=== PATIENT | male | born 2000 | race Caucasian/White ===

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

== ENCOUNTER 2022-02-21 04:45 | Emergency (ER) | payer MEDICAID ==
[~2022-02-21 04:45] MED LIST: AMOX500C2 PO
--- NOTE | 2022-02-21 05:09 | ED Psychosocial ---
General Chief Complaint: Psych/Social Disorder Stated Complaint: SUICIDAL IDEATIONS Source: patient (MACHO REDD ) History of Present Illness Date Seen by Provider: Feb 21, 2022 Time Seen by Provider: 04:50 Initial Comments PT ARRIVES VIA EMS FROM HOME--WALKS INTO ER ON HIS OWN C/O SUICIDAL IDEATIONS STATES THAT TONIGHT, HE HAD A KNIFE IN HIS HAND AND WAS PLANNING ON GETTING INTO THE SHOWER/BATHTUB AND SLITTING HIS WRISTS STATES ONE OF HIS FRIENDS TEXTED HIM BACK AND THEN CONVINCED HIM TO COME HERE AND GET HELP. PT LIVES WITH 2 OTHER PEOPLE AT THIS TIME PT STATES THAT 5 DAYS AGO, HE BROKE UP WITH SOMEONE THAT HE HAD BEEN WITH FOR 2 1/2 YEARS THAT PERSON USED TO LIVE WITH HIM, BUT HAS NOT LIVED WITH HIM "FOR AWHILE" PT DOES NOT WORK, AND DOES NOT GO TO SCHOOL PT HAD SOME SUICIDAL IDEATIONS IN THE PAST, AND WAS ADMITTED VOLUNTARILY FOR 2 WEEKS AT A FACILITY IN [place] 04/2020 HE WAS STARTED ON MEDICATIONS, BUT PT QUIT TAKING THEM AFTER ABOUT 2 WEEKS, AND NEVER FOLLOWED UP WITH ANYONE FOR MENTAL HEALTH AT ANY TIME. PT DOES NOT SEE ANY ONE FOR PRIMARY CARE EITHER. PT IS CURRENTLY TAKING SPIRONOLACTONE AND ESTRADIOL SINCE 05/01/2021--PRESCRIBED BY [facility] [place]IA TELEHEALTH VISIT PT SMOKES 1/2 PPD OF CIGARETTES OCCASIONALLY SMOKES THC, BUT NONE X 3 MONTHS OCCASIONALLY DRINKS, BUT NONE X 8-9 MONTHS. NO FEVER OR RECENT ILLNESS PT HAS HAD 1 COVID-19 VACCINE. PCP; NONE (MACHO REDD DO) Initial Comments Patient states transgender identity and is on hormone therapy with estradiol and spironolactone. (JANINE KAY MD) Allergies and Home Medications Allergies Coded Allergies: No Known Drug Allergies (Unverified , 02/22/21) Patient Home Medication List Home Medication List Reviewed: Yes (JANINE KAY MD) Amoxicillin (Amoxicillin) 500 Mg Capsule, 500 MG PO TID Prescribed by: BETH CAMPBELL on 02/22/212020 Review of Systems Constitutional: no symptoms reported EENTM: no symptoms reported Respiratory: no symptoms reported Cardiovascular: no symptoms reported Gastrointestinal: no symptoms reported Genitourinary: no symptoms reported Musculoskeletal: no symptoms reported Skin: no symptoms reported Psychiatric/Neurological: See HPI, Depressed, Emotional Problems (MACHO REDD) Past Kygdaga-Sunpfl-Swtkyc Hx Patient Social History Tobacco Use?: Yes Tobacco type used: Cigarettes Smoking Status: Current Everyday Smoker Substance type: Marijuana Substance frequency: Once in a while Alcohol Use?: Yes Alcohol Frequency: Once in a while (MACHO REDD DO) Immunizations Up To Date First/Initial COVID19 Vaccinat: OCTOBER 2020 (MACHO REDD DO) Past Medical History Surgeries: No Respiratory: No Cardiac: No Neurological: No Genitourinary: No Gastrointestinal: No Musculoskeletal: No Endocrine: No HEENT: No Cancer: No Psychosocial: Yes (SUICIDAL THOUGHTS; PSYCH ADMIT X 1 04/2020) Depression (MACHO REDD DO) Endocrine: Yes (Transgender identity with hormone therapy) (JANINE KAY MD) Physical Exam Vital Signs - First Documented 02/21/22 04:48 Temp 37.0 Pulse 87 Resp 16 B/P (MAP) 141/96 (111) Pulse Ox 97 O2 Delivery Room Air (JANINE KAY MD) Capillary Refill : (MACHO REDD DO) Height, Weight, BMI Height: '" Weight: lbs. oz. kg; 19.00 BMI Method: General Appearance: WD/WN, no apparent distress, thin, other (DIRTY, VERY UNKEMPT, MALODOROUS AND REEKS OF CIGARETTES, FLAT AFFECT, BUT DOES TALK FREELY. ) HEENT: PERRL/EOMI Neck: normal inspection Respiratory: normal breath sounds Cardiovascular: regular rate, rhythm Gastrointestinal: non tender, soft Extremities: normal inspection, normal capillary refill Neurologic/Psychiatric: retail support manager II-XII nml as tested, no motor/sensory deficits, alert, oriented x 3 Appearance/Memory: appropriate insight, no memory impairment, disheveled Behavior/Eye Contact: cooperative, normal speech, avoids eye contact Thoughts/Hallucinations: normal thought pattern, no apparent hallucination Skin: normal color, warm/dry, other (NO EXTERNAL EVIDENCE OF TRAUMA) (MACHO REDD DO) Progress/Results/Core Measures Results/Orders Lab Results Laboratory Tests Test 02/21/22 05:14 02/21/22 06:40 Range/Units White Blood Count 8.4 4.3-11.0 10^3/uL Red Blood Count 5.94 H 4.30-5.52 10^6/uL Hemoglobin 16.7 13.3-17.7 g/dL Hematocrit 48 40-54 % Mean Corpuscular Volume 82 80-99 fL Mean Corpuscular Hemoglobin 28 25-34 pg Mean Corpuscular Hemoglobin Concent 35 32-36 g/dL Red Cell Distribution Width 12.2 10.0-14.5 % Platelet Count 236 130-400 10^3/uL Mean Platelet Volume 9.8 9.0-12.2 fL Immature Granulocyte % (Auto) 0 % Neutrophils (%) (Auto) 67 42-75 % Lymphocytes (%) (Auto) 24 12-44 % Monocytes (%) (Auto) 7 0-12 % Eosinophils (%) (Auto) 2 0-10 % Basophils (%) (Auto) 0 0-10 % Neutrophils # (Auto) 5.6 1.8-7.8 10^3/uL Lymphocytes # (Auto) 2.0 1.0-4.0 10^3/uL Monocytes # (Auto) 0.5 0.0-1.0 10^3/uL Eosinophils # (Auto) 0.2 0.0-0.3 10^3/uL Basophils # (Auto) 0.0 0.0-0.1 10^3/uL Immature Granulocyte # (Auto) 0.0 0.0-0.1 10^3/uL Sodium Level 139 135-145 MMOL/L Potassium Level 3.5 L 3.6-5.0 MMOL/L Chloride Level 102 98-107 MMOL/L Carbon Dioxide Level 25 21-32 MMOL/L Anion Gap 12 5-14 MMOL/L Blood Urea Nitrogen 12 7-18 MG/DL Creatinine 0.88 0.60-1.30 MG/DL Estimat Glomerular Filtration Rate 126 BUN/Creatinine Ratio 14 Glucose Level 101 70-105 MG/DL Calcium Level 10.3 H 8.5-10.1 MG/DL Corrected Calcium 8.5-10.1 MG/DL Total Bilirubin 0.5 0.1-1.0 MG/DL Aspartate Amino Transf (AST/SGOT) 16 5-34 U/L Alanine Aminotransferase (ALT/SGPT) 16 0-55 U/L Alkaline Phosphatase 56 40-136 U/L Total Protein 7.9 6.4-8.2 GM/DL Albumin 4.9 H 3.2-4.5 GM/DL TSH [place] Testing 0.74 0.35-4.94 UIU/ML Salicylates Level < 5.0 L 5.0-20.0 MG/DL Acetaminophen Level < 10 L 10-30 UG/ML Serum Alcohol < 10 <10 MG/DL SARS-CoV-2 RNA (RT-PCR) Not Detected Not Detecte Urine Color YELLOW Urine Clarity CLEAR Urine pH 8.5 5-9 Urine Specific [place] 1.010 L 1.016-1.022 Urine Protein 1+ H NEGATIVE Urine Glucose (UA) NEGATIVE NEGATIVE Urine Ketones TRACE H NEGATIVE Urine Nitrite NEGATIVE NEGATIVE Urine Bilirubin NEGATIVE NEGATIVE Urine Urobilinogen 4.0 < = 1.0 MG/DL Urine Leukocyte Esterase NEGATIVE NEGATIVE Urine RBC (Auto) NEGATIVE NEGATIVE Urine RBC NONE /HPF Urine WBC RARE /HPF Urine Squamous Epithelial Cells 5-10 /HPF Urine Crystals NONE /LPF Urine Bacteria MODERATE H /HPF Urine Casts NONE /LPF Urine Mucus NEGATIVE /LPF Urine Culture Indicated YES Urine Opiates Screen NEGATIVE NEGATIVE Urine Oxycodone Screen NEGATIVE NEGATIVE Urine Methadone Screen NEGATIVE NEGATIVE Urine Propoxyphene Screen NEGATIVE NEGATIVE Urine Barbiturates Screen NEGATIVE NEGATIVE Ur Tricyclic Antidepressants Screen NEGATIVE NEGATIVE Urine Phencyclidine Screen NEGATIVE NEGATIVE Urine Amphetamines Screen NEGATIVE NEGATIVE Urine Methamphetamines Screen NEGATIVE NEGATIVE Urine Benzodiazepines Screen NEGATIVE NEGATIVE Urine Cocaine Screen NEGATIVE NEGATIVE Urine Cannabinoids Screen NEGATIVE NEGATIVE (JANINE KAY MD) My Orders Orders - JANINE KAY MD General/Regular (02/21/22 Breakfast) (JANINE KAY MD) Vital Signs/I&O 02/21/22 04:48 Temp 37.0 Pulse 87 Resp 16 B/P (MAP) 141/96 (111) Pulse Ox 97 O2 Delivery Room Air (JANINE KAY MD) Progress Progress Note : Progress Note TELE-SITTER IN ROOM AND PT IS IN VIEW OF ER STAFF AT NURSING STATION 0600--CARE TURNED OVER TO DR. KAY AT SHIFT CHANGE. LAB IS STILL PENDING AND PT HAS NOT BEEN ABLE TO GIVE A URINE SPECIMEN AT THIS TIME, THEN ANTICIPATE MENTAL HEALTH SCREEN. PT REMAINS CALM AND COOPERATIVE. (MACHO REDD DO) Progress Note : Time: 11:21 Progress Note Patient was screened by [place] [facility]. Safety plan was developed. There was questionable pyuria on the urinalysis. Patient denies any urinary symptoms. We will not prescribe any antibiotics at this time and wait for urine culture results. I also clarified that the spironolactone and estradiol were for hormone therapy in this patient who identifies as transgender. (JANINE KAY MD) Initial ECG Impression Date: Feb 21, 2022 Initial ECG Impression Time: 05:40 Initial ECG Rate: 71 Initial ECG Rhythm: Normal Sinus Initial ECG Impression: Nonspecific Changes Initial ECG Comparisson: No Previous ECG Available (MACHO REDD DO) Departure Impression Primary Impression: Suicidal ideation Disposition: HOME, SELF-CARE Condition: Stable Departure-Patient Inst. Decision time for Depature: 11:12 (JANINE KAY MD) Referrals: NO,LOCAL PHYSICIAN (PCP/Family) Primary Care Physician Patient Instructions: Suicide Prevention Add. Discharge Instructions: Follow the instructions outlined in your safety plan. For urgent mental health or behavioral health needs, you may contact the critical access hospital crisis line at [phone]. Alternatively, you may return to the emergency room. Return to the ER if you have any other urgent medical needs. Follow-up with your primary care provider and behavioral health provider soon as possible. All discharge instructions reviewed with patient and/or family. Voiced understanding. MACHO REDD DO Feb 21, 2022 05:09 JANINE KAY MD Feb 21, 2022 11:14
[2022-02-21 05:29] LABS: BASOPHILS % (AUTO) 0 % (0-10); EOSINOPHILS # (AUTO) 0.2 10^3/uL (0.0-0.3); EOSINOPHILS % (AUTO) 2 % (0-10); HEMATOCRIT 48 % (40-54); HEMOGLOBIN 16.7 g/dL (13.3-17.7); LYMPHOCYTES % (AUTO) 24 % (12-44); MEAN CORPUSCULAR HEMOGLOBIN 28 pg (25-34); MEAN CORPUSCULAR HGB CONC 35 g/dL (32-36); MEAN CORPUSCULAR VOLUME 82 fL (80-99); MEAN PLATELET VOLUME 9.8 fL (9.0-12.2); MONOCYTES # (AUTO) 0.5 10^3/uL (0.0-1.0); MONOCYTES % (AUTO) 7 % (0-12); NEUTROPHILS # (AUTO) 5.6 10^3/uL (1.8-7.8); NEUTROPHILS % (AUTO) 67 % (42-75); PLATELET COUNT 236 10^3/uL (130-400); WHITE BLOOD COUNT 8.4 10^3/uL (4.3-11.0)
[2022-02-21 05:50] LABS: ALBUMIN 4.9 GM/DL (3.2-4.5); CHLORIDE 102 MMOL/L (98-107); POTASSIUM 3.5 MMOL/L (3.6-5.0); SODIUM 139 MMOL/L (135-145)
[2022-02-21 05:51] LABS: CALCIUM 10.3 MG/DL (8.5-10.1)
[2022-02-21 05:52] LABS: GLUCOSE 101 MG/DL (70-105)
[2022-02-21 05:53] LABS: CARBON DIOXIDE 25 MMOL/L (21-32); TOTAL PROTEIN 7.9 GM/DL (6.4-8.2)
[2022-02-21 05:54] LABS: BILIRUBIN,TOTAL 0.5 MG/DL (0.1-1.0)
[2022-02-21 05:56] LABS: ALKALINE PHOSPHATASE 56 U/L (40-136); CREATININE SERUM 0.88 MG/DL (0.60-1.30); GFR ESTIMATED 126
[2022-02-21 05:58] LABS: BUN/CREATININE RATIO 14
[2022-02-21 05:59] LABS: ALANINE AMINOTRANSFERASE 16 U/L (0-55); SALICYLATE < 5.0 MG/DL (5.0-20.0)
[2022-02-21 06:11] LABS: ACETAMINOPHEN < 10 UG/ML (10-30)
[2022-02-21 06:19] LABS: TSH (THYROID ANALYZER) 0.74 UIU/ML (0.35-4.94)
[2022-02-21 06:49] LABS: BILIRUBIN,URINE NEGATIVE (NEGATIVE); CLARITY,URINE CLEAR; COLOR,URINE YELLOW; GLUCOSE, URINE (UA) NEGATIVE (NEGATIVE); KETONES,URINE TRACE (NEGATIVE); LEUKOCYTE ESTERASE ,URINE NEGATIVE (NEGATIVE); NITRITE,URINE NEGATIVE (NEGATIVE); PH,URINE 8.5 (5-9); PROTEIN,URINE 1+ (NEGATIVE)
[2022-02-21 06:58] LABS: AMPHETAMINE SCREEN, URINE NEGATIVE (NEGATIVE); BARBITURATE SCREEN URINE NEGATIVE (NEGATIVE); BENZODIAZEPINES SCREEN URINE NEGATIVE (NEGATIVE); CANNABINOID SCREEN, URINE NEGATIVE (NEGATIVE); COCAINE SCREEN URINE NEGATIVE (NEGATIVE); METHADONE STAT NEGATIVE (NEGATIVE); OPIATE SCREEN URINE NEGATIVE (NEGATIVE); OXYCODONE STAT NEGATIVE (NEGATIVE); PROPOXYPHENE STAT NEGATIVE (NEGATIVE); TRICYCLIC ANTIDEPRESSANTS SCRE NEGATIVE (NEGATIVE)
[2022-02-21 07:02] LABS: BACTERIA,URINE MODERATE /HPF; WBC,URINE RARE /HPF
[2022-02-21 11:22] VITALS: BP 117/76
== END 2022-02-21 11:22 | disposition home or self-care (01) ==
LOC: EDUNIT# 04:45 → ER 04:46
DX: R45.851 Suicidal ideations (principal); F17.210 Nicotine dependence, cigarettes, uncomplicated; Z20.822 Contact with and (suspected) exposure to COVID-19; Z28.311 Partially vaccinated for COVID-19
CPT/HCPCS: 80053; 80306; 81000; 84443; 85025; 87077; 87088; 87636; 93005; 93041; 99284; G0480 ×3; 36415; 80320; 80329

== ENCOUNTER 2022-12-27 13:27 | Emergency (ER) | payer MEDICAID ==
[~2022-12-27] VITALS: Ht 187.9 cm; Wt 72.5 kg
[2022-12-27 13:41] LABS: BASOPHILS % (AUTO) 0 % (0-10); EOSINOPHILS # (AUTO) 0.1 10^3/uL (0.0-0.3); EOSINOPHILS % (AUTO) 1 % (0-10); HEMATOCRIT 43 % (40-54); HEMOGLOBIN 14.4 g/dL (13.3-17.7); LYMPHOCYTES % (AUTO) 17 % (12-44); MEAN CORPUSCULAR HEMOGLOBIN 28 pg (25-34); MEAN CORPUSCULAR HGB CONC 34 g/dL (32-36); MEAN CORPUSCULAR VOLUME 83 fL (80-99); MEAN PLATELET VOLUME 9.6 fL (9.0-12.2); MONOCYTES # (AUTO) 0.9 10^3/uL (0.0-1.0); MONOCYTES % (AUTO) 15 % (0-12); NEUTROPHILS % (AUTO) 66 % (42-75); PLATELET COUNT 191 10^3/uL (130-400); WHITE BLOOD COUNT 6.1 10^3/uL (4.3-11.0)
[2022-12-27] MEDS ORDERED: fentaNYL INJECTION 100 MCG/2 ML VIAL IVP ONE ×2 (13:45→15:45)
[2022-12-27] MEDS ORDERED: ONDANSETRON 4 MG/2 ML (SDV) Z0FRAN IVP ONE (13:45)
[2022-12-27 13:51] LABS: ALBUMIN 4.3 GM/DL (3.2-4.5)
[2022-12-27 13:52] LABS: POTASSIUM 3.3 MMOL/L (3.6-5.0)
[2022-12-27 13:53] LABS: CALCIUM 9.5 MG/DL (8.5-10.1)
[2022-12-27 13:56] LABS: BILIRUBIN,TOTAL 0.4 MG/DL (0.1-1.0)
[2022-12-27 13:58] LABS: CREATININE SERUM 0.83 MG/DL (0.60-1.30)
--- NOTE | 2022-12-27 14:12 | ED Abdominal Pain ---
General Chief Complaint: Abdominal/GI Problems Stated Complaint: ABD PAIN | DIZZINESS Nursing Triage Note: PT TO RM 5 BY EMS WITH CC OF LLQ ABD PAIN X1HR, DIZZINESS, NAUSEA AND VOMITING X1.5WEEKS. 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 PT A&OX4 Source of Information: Patient Exam Limitations: No Limitations History of Present Illness Date Seen by Provider: Dec 27, 2022 Time Seen by Provider: 13:35 Initial Comments 22-year-old male presents to the ER via EMS for complaint of left mid abdominal pain x 1 hour. He states he had 1 episode of vomiting when the pain started. Reports he vomited a large amount of bloody emesis. He states for the last week and a half he has had intermittent left mid abdomen and right mid abdomen pain. States that a week and half ago he had 1 episode of vomiting with a small amount of blood at that time. He denies excessive aspirin or ibuprofen use. Patient is coughing, but states that the blood is from vomit, not from coughing. He denies fevers, diarrhea, dysuria. Last bowel movement was yesterday and normal. Reports his bowel movements are brown in color. Denies any blood in his stool or black tarry stools. Denies any past medical history, does not taking medic ations regularly. Reports that he smokes weed about once a week on the weekends. Allergies and Home Medications Allergies Coded Allergies: No Known Drug Allergies (Unverified , 02/22/21) Patient Home Medication List Home Medication List Reviewed: Yes Amoxicillin (Amoxicillin) 500 Mg Capsule, 500 MG PO TID Prescribed by: BETH CAMPBELL on 02/22/212020 Ondansetron (Ondansetron Odt) 4 Mg Tab.rapdis, 4 MG SL Q4H PRN for NAUSEA/VOMITING Prescribed by: Mai Silva on 12/27/22 1522 Review of Systems Review of Systems Constitutional: see HPI Past Dvnuycb-Zrfwfc-Cbiufp Hx Patient Social History Tobacco Use?: No Substance use?: Yes Substance type: Marijuana Alcohol Use?: No Pt feels they are or have been: No Immunizations Up To Date First/Initial COVID19 Vaccinat: OCTOBER 2020 Second COVID19 Vaccination Chau: OCTOBER 2020 Third COVID19 Vaccination Date: OCTOBER 2020 Past Medical History Surgeries: No Respiratory: No Cardiac: No Neurological: No Genitourinary: No Gastrointestinal: No Musculoskeletal: No 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 oz. kg; 20.00 BMI Method: General Appearance: WD/WN, no apparent distress Neck: supple, normal inspection Respiratory: lungs clear, normal breath sounds, no respiratory distress, no accessory muscle use Cardiovascular: regular rate, rhythm Gastrointestinal: normal bowel sounds, soft, tenderness (Right lower quadrant, left lower quadrant, worse in left lower quadrant) Extremities: normal range of motion, normal inspection Neurologic/Psychiatric: alert, normal mood/affect Skin: normal color, warm/dry Progress/Results/Core Measures Results/Orders Lab Results Laboratory Tests Test 12/27/22 13:30 12/27/22 15:16 Range/Units White Blood Count 6.1 4.3-11.0 10^3/uL Red Blood Count 5.12 4.30-5.52 10^6/uL Hemoglobin 14.4 13.3-17.7 g/dL Hematocrit 43 40-54 % Mean Corpuscular Volume 83 80-99 fL Mean Corpuscular Hemoglobin 28 25-34 pg Mean Corpuscular Hemoglobin Concent 34 32-36 g/dL Red Cell Distribution Width 12.7 10.0-14.5 % Platelet Count 191 130-400 10^3/uL Mean Platelet Volume 9.6 9.0-12.2 fL Immature Granulocyte % (Auto) 0 % Neutrophils (%) (Auto) 66 42-75 % Lymphocytes (%) (Auto) 17 12-44 % Monocytes (%) (Auto) 15 H 0-12 % Eosinophils (%) (Auto) 1 0-10 % Basophils (%) (Auto) 0 0-10 % Neutrophils # (Auto) 4.0 1.8-7.8 10^3/uL Lymphocytes # (Auto) 1.0 1.0-4.0 10^3/uL Monocytes # (Auto) 0.9 0.0-1.0 10^3/uL Eosinophils # (Auto) 0.1 0.0-0.3 10^3/uL Basophils # (Auto) 0.0 0.0-0.1 10^3/uL Immature Granulocyte # (Auto) 0.0 0.0-0.1 10^3/uL Sodium Level 138 135-145 MMOL/L Potassium Level 3.3 L 3.6-5.0 MMOL/L Chloride Level 106 98-107 MMOL/L Carbon Dioxide Level 21 21-32 MMOL/L Anion Gap 11 5-14 MMOL/L Blood Urea Nitrogen 5 L 7-18 MG/DL Creatinine 0.83 0.60-1.30 MG/DL Estimat Glomerular Filtration Rate 128 BUN/Creatinine Ratio 6 Glucose Level 94 70-105 MG/DL Calcium Level 9.5 8.5-10.1 MG/DL Corrected Calcium 9.3 8.5-10.1 MG/DL Total Bilirubin 0.4 0.1-1.0 MG/DL Aspartate Amino Transf (AST/SGOT) 19 5-34 U/L Alanine Aminotransferase (ALT/SGPT) 23 0-55 U/L Alkaline Phosphatase 52 40-136 U/L Total Protein 7.0 6.4-8.2 GM/DL Albumin 4.3 3.2-4.5 GM/DL Lipase 6 L 8-78 U/L Urine Color YELLOW Urine Clarity CLEAR Urine pH 5.5 5-9 Urine Specific [place] <=1.005 1.016-1.022 Urine Protein NEGATIVE NEGATIVE Urine Glucose (UA) NEGATIVE NEGATIVE Urine Ketones 1+ H NEGATIVE Urine Nitrite NEGATIVE NEGATIVE Urine Bilirubin NEGATIVE NEGATIVE Urine Urobilinogen 0.2 < = 1.0 MG/DL Urine Leukocyte Esterase NEGATIVE NEGATIVE Urine RBC (Auto) NEGATIVE NEGATIVE Urine RBC NONE /HPF Urine WBC NONE /HPF Urine Squamous Epithelial Cells 0-2 /HPF Urine Crystals NONE /LPF Urine Bacteria NEGATIVE /HPF Urine Casts NONE /LPF Urine Mucus NEGATIVE /LPF Urine Culture Indicated NO My Orders Orders - MAI PAZ APRN Comprehensive Metabolic Panel (12/27/22 13:35) Lipase (12/27/22 13:35) Ua Culture If Indicated (12/27/22 13:35) Ed Iv/Invasive Line Start (12/27/22 13:35) Cbc With Automated Diff (12/27/22 13:35) Fentanyl Injection (Fentanyl Injection (12/27/22 13:45) Ondansetron Injection (Zofran Injectio (12/27/22 13:45) Ct Abdomen/Pelvis W (12/27/22 14:01) Iohexol Injection (Omnipaque 350 Mg/Ml 1 (12/27/22 14:15) Received Contrast (Hold Metformin- Contr (12/27/22 14:15) Ns (Ivpb) 100 Ml (Sodium Chloride 0.9% 1 (12/27/22 14:15) Potassium Chloride (Tablet) (Potassium C (12/27/22 15:00) Fentanyl Injection (Fentanyl Injection (12/27/22 15:45) Medications Given in ED Current Medications Medications Dose Ordered Sig/Donya Route Start Time Stop Time Status Last Admin Dose Admin Fentanyl Citrate 50 mcg ONCE ONCE IVP 12/27/22 13:45 12/27/22 13:46 DC 12/27/22 14:04 50 MCG Fentanyl Citrate 50 mcg ONCE ONCE IVP 12/27/22 15:45 12/27/22 15:46 DC 12/27/22 15:44 50 MCG Iohexol 100 ml ONCE ONCE IV 12/27/22 14:15 12/27/22 14:16 DC 12/27/22 14:17 80 ML Ondansetron HCl 4 mg ONCE ONCE IVP 12/27/22 13:45 12/27/22 13:46 DC 12/27/22 14:04 4 MG Potassium Chloride 40 meq ONCE ONCE PO 12/27/22 15:00 12/27/22 15:01 DC 12/27/22 15:07 40 MEQ Sodium Chloride 100 ml ONCE ONCE IV 12/27/22 14:15 12/27/22 14:16 DC 12/27/22 14:17 80 ML Vital Signs/I&O 12/27/22 13:30 Temp 37.6 Pulse 90 Resp 18 B/P (MAP) 129/79 (96) Pulse Ox 98 O2 Delivery Room Air Blood Pressure Mean: 96 Progress Progress Note : Progress Note Patient seen and evaluated, resting comfortably in bed, no acute distress. Based on exam and symptoms, workup initiated including CBC, CMP, lipase, UA, CT abdomen pelvis. Fentanyl and Zofran ordered, EMS already started a liter of fluids, will continue administering the fluids. 1456 CT and labs reviewed. CBC grossly normal, no anemia. CMP shows slightly decreased potassium at 3.3. Lipase normal. Still waiting on urinalysis. CT abdomen pelvis shows no acute abnormality. Oral potassium ordered. Results discussed with patient. Plan will be to discharge after urinalysis with follow- up with surgery for possible upper endoscopy. 1544 urinalysis reviewed. 1+ ketones, negative for infection. Results discussed with patient. Will continue with discharge plan. Discharge instructions and return precautions provided. Diagnostic Imaging Diagonstic Imaging: CT Plain Films/CT/US/NM/MRI: abdomen, pelvis Comments [facility] [place], [place] NAME: JENNIFER ARRIETA [facility] REC#: [id number] PT STATUS: REG ER : 2002 PHYSICIAN: MAI PAZ APRN ADMIT DATE: 12/27/22/ER Draft Date of Exam:12/27/22 CT ABDOMEN/PELVIS W PROCEDURE: CT abdomen and pelvis with contrast. TECHNIQUE: Multiple contiguous axial images were obtained through the abdomen and pelvis after administration of intravenous contrast. Auto Exposure Controls were utilized during the CT exam to meet ALARA standards for radiation dose reduction. All CT scans use one or more of the following dose optimizing techniques: automated exposure control, MA and/or KvP adjustment based on patient size and exam type or iterative reconstruction. INDICATION: Left lower quadrant pain, dizziness, nausea, vomiting, and hematemesis. COMPARISON: No priors. FINDINGS: There is no diverticulitis or evidence for appendicitis. There is no bowel obstruction. There is no pneumatosis or free gas. No intra or extraperitoneal hemorrhage. No contrast extravasation. The stomach is nondilated. No mass effect or obstruction at the level of the outlet. The liver, gallbladder, bile ducts, spleen, adrenals, and pancreas appear normal. No abscess, hematoma, or acute fluid collection. No pneumatosis or free gas. No bowel wall thickening. No perienteric or pericolonic edema. The urinary bladder is unremarkable. The bony structures are nonacute. IMPRESSION: Unremarkable abdominal/pelvic CT. Dictated on workstation # [id number] Dict: 12/27/22 1425 Trans: 12/27/22 1442 [id number] Interpreted by: SOTERO CASTRO Electronically signed by: Departure Impression Primary Impression: Abdominal pain Additional Impression: Hematemesis Disposition: 01 HOME, SELF-CARE Condition: Stable Departure-Patient Inst. Referrals: LOKESH HUDSON MD Patient Instructions: Severe Abdominal Pain, Adult (DC) Add. Discharge Instructions: Call Dr. Hudson today or tomorrow to schedule a follow-up appointment for your vomiting of blood. Take Zofran as needed for nausea, only take when needed, because it can cause constipation. Follow-up with a primary care provider as well. Return for severe pain, significant amount of bloody emesis, black tarry stool, or any other new, concerning, or worsening symptoms. All discharge instructions reviewed with patient and/or family. Voiced un derstanding. Scripts Ondansetron (Ondansetron Odt) 4 Mg Tab.rapdis 4 MG SL Q4H PRN for NAUSEA/VOMITING, #20 TAB 0 Refills Prov: MAI PAZ APRN 12/27/22 MAI PAZ APRN Dec 27, 2022 14:12
[2022-12-27] MEDS ORDERED: NS 100 ML (IVPB) BAG IV ONE (14:15)
[2022-12-27] MEDS ORDERED: HOLD METFORMIN - RECEIVED CONTRAST 20 ML VIAL IV SCH (14:15)
[2022-12-27] MEDS ORDERED: IOHEXOL 350 MG/ML 100 ML (OMNIPAQUE 350) VIAL IV ONE (14:15)
--- NOTE | 2022-12-27 14:42 | Diagnostic Imaging Report ---
PROCEDURE: CT abdomen and pelvis with contrast. TECHNIQUE: Multiple contiguous axial images were obtained through the abdomen and pelvis after administration of intravenous contrast. Auto Exposure Controls were utilized during the CT exam to meet ALARA standards for radiation dose reduction. All CT scans use one or more of the following dose optimizing techniques: automated exposure control, MA and/or KvP adjustment based on patient size and exam type or iterative reconstruction. INDICATION: Left lower quadrant pain, dizziness, nausea, vomiting, and hematemesis. COMPARISON: No priors. FINDINGS: There is no diverticulitis or evidence for appendicitis. There is no bowel obstruction. There is no pneumatosis or free gas. No intra or extraperitoneal hemorrhage. No contrast extravasation. The stomach is nondilated. No mass effect or obstruction at the level of the outlet. The liver, gallbladder, bile ducts, spleen, adrenals, and pancreas appear normal. No abscess, hematoma, or acute fluid collection. No pneumatosis or free gas. No bowel wall thickening. No perienteric or pericolonic edema. The urinary bladder is unremarkable. The bony structures are nonacute. IMPRESSION: Unremarkable abdominal/pelvic CT. Dictated by: Dictated on workstation # [id number]
[2022-12-27] MEDS ORDERED: POTASSIUM CHLORIDE 20 MEQ TABLET PO ONE (15:00)
[2022-12-27] MEDS ORDERED: ONDA4TAB11 SL (15:22)
[2022-12-27 15:39] LABS: CLARITY,URINE CLEAR; COLOR,URINE YELLOW; PH,URINE 5.5 (5-9); PROTEIN,URINE NEGATIVE (NEGATIVE)
[2022-12-27 15:40] LABS: BACTERIA,URINE NEGATIVE /HPF; BILIRUBIN,URINE NEGATIVE (NEGATIVE); GLUCOSE, URINE (UA) NEGATIVE (NEGATIVE); KETONES,URINE 1+ (NEGATIVE); LEUKOCYTE ESTERASE ,URINE NEGATIVE (NEGATIVE); NITRITE,URINE NEGATIVE (NEGATIVE); SQUAMOUS EPITHELIAL CELL,UR 0-2 /HPF
[2022-12-27 16:07] VITALS: BP 130/75
== END 2022-12-27 16:12 | disposition home or self-care (01) ==
LOC: EDUNIT# 13:27 → ER 13:28
DX: R10.32 Left lower quadrant pain (principal); R10.31 Right lower quadrant pain; K92.0 Hematemesis; R42 Dizziness and giddiness
CPT/HCPCS: 36415; 74177; 80053; 81000; 83690; 85025

== ENCOUNTER 2022-12-28 22:45 | Emergency (ER) | payer MEDICAID ==
[~2022-12-28] VITALS: Ht 187.9 cm; Wt 72.5 kg
[~2022-12-28 22:45] MED LIST changes: +ONDA4TAB11 SL
[2022-12-28 23:10] LABS: BASOPHILS % (AUTO) 0 % (0-10); EOSINOPHILS # (AUTO) 0.1 10^3/uL (0.0-0.3); EOSINOPHILS % (AUTO) 1 % (0-10); HEMATOCRIT 42 % (40-54); HEMOGLOBIN 14.2 g/dL (13.3-17.7); LYMPHOCYTES # (AUTO) 1.1 10^3/uL (1.0-4.0); LYMPHOCYTES % (AUTO) 20 % (12-44); MEAN CORPUSCULAR HEMOGLOBIN 28 pg (25-34); MEAN CORPUSCULAR HGB CONC 34 g/dL (32-36); MEAN CORPUSCULAR VOLUME 85 fL (80-99); MEAN PLATELET VOLUME 9.4 fL (9.0-12.2); MONOCYTES # (AUTO) 0.7 10^3/uL (0.0-1.0); MONOCYTES % (AUTO) 14 % (0-12); NEUTROPHILS # (AUTO) 3.5 10^3/uL (1.8-7.8); NEUTROPHILS % (AUTO) 65 % (42-75); PLATELET COUNT 182 10^3/uL (130-400); WHITE BLOOD COUNT 5.5 10^3/uL (4.3-11.0)
[2022-12-28] MEDS ORDERED: ONDANSETRON 4 MG/2 ML (SDV) Z0FRAN IVP ONE (23:15)
[2022-12-28] MEDS ORDERED: LACTATED RINGERS 1,000 ML IV ONE (23:15)
[2022-12-28 23:27] LABS: ACETAMINOPHEN 14 UG/ML (10-30); ALANINE AMINOTRANSFERASE 19 U/L (0-55); ALKALINE PHOSPHATASE 47 U/L (40-136); AMYLASE 29 U/L (25-125); BILIRUBIN,TOTAL 0.3 MG/DL (0.1-1.0); BUN/CREATININE RATIO 5; CALCIUM 9.1 MG/DL (8.5-10.1); CARBON DIOXIDE 23 MMOL/L (21-32); CHLORIDE 105 MMOL/L (98-107); CREATININE SERUM 0.82 MG/DL (0.60-1.30); GFR ESTIMATED 129; GLUCOSE 115 MG/DL (70-105); LIPASE 4 U/L (8-78); POTASSIUM 3.3 MMOL/L (3.6-5.0); SODIUM 138 MMOL/L (135-145); TOTAL PROTEIN 6.6 GM/DL (6.4-8.2)
[2022-12-29 00:26] LABS: BILIRUBIN,URINE NEGATIVE (NEGATIVE); CLARITY,URINE CLEAR; COLOR,URINE YELLOW; GLUCOSE, URINE (UA) NEGATIVE (NEGATIVE); KETONES,URINE NEGATIVE (NEGATIVE); NITRITE,URINE NEGATIVE (NEGATIVE); PROTEIN,URINE NEGATIVE (NEGATIVE)
[2022-12-29 00:27] LABS: AMORPHOUS SEDIMENT,UR FEW AMOR URATES /LPF; BACTERIA,URINE FEW /HPF; LEUKOCYTE ESTERASE ,URINE TRACE (NEGATIVE); WBC,URINE 0-2 /HPF
[2022-12-29] MEDS ORDERED: cefTRIAXone IV/IM 1,000 MG in NS (IVPB) 50 ML 50 ML IV STA (00:28)
[2022-12-29] MEDS ORDERED: IBUPROFEN 800 MG TABLET PO ONE (00:30)
[2022-12-29] MEDS ORDERED: AZITHROMYCIN 250 MG TABLET PO ONE (00:30)
[2022-12-29] MEDS ORDERED: CIPR500T5 PO (00:32)
--- NOTE | 2022-12-29 00:32 | ED Abdominal Pain ---
General Chief Complaint: Abdominal/GI Problems Stated Complaint: ABD PAIN Nursing Triage Note: PT TO ROOM BY [facility]. PT STATES HE HAS HAD ABDOMINAL PAIN FOR APPROX 2 WEEKS THAT HAS WORSENED TODAY. PT STATES HE IS VOMITING BLOOD. STATES HE WAS SENT NAUSEA MEDS TO THE PHARMACY BUT HAS NOT BEEN ABLE TO GET THEM YET. PT STATES HE TOOK TYLENOL BUT IT HAS NOT HELPED MUCH. PT REPORTS LEFT LOWER ABDOMINAL PAIN IS A 9/10 STABBING/TWISTING PAIN. PT IS A&OX4, SPEECH NORMAL ON ARRIVAL Source of Information: Patient History of Present Illness Date Seen by Provider: Dec 28, 2022 Time Seen by Provider: 22:55 Initial Comments PT ARRIVES VIA EMS FROM HOME PT C/O LLQ PAIN THAT HAS BEEN ONGOING FOR THE LAST 2 WEEKS HE STATES THAT PAIN HAS BEEN WORSE THE LAST 2 HOURS. HE HAS NOT TAKEN ANYTHING FOR PAIN HE STATES THAT HE VOMITED BLOOD 1 TIME 2 WEEKS AGO, BUT DID NOT SEEK CARE. HE VOMITED BLOOD 1 TIME 2 DAYS AGO ALSO HE HAD A NORMAL BM TODAY NO URINARY SYMPTOMS AND IS VOIDING A NORMAL AMOUNT. NO FEVER HE IS EATING AND DRINKING NORMALLY. HE ATE 2 BOLOGNA AND CHEESE SANDWICHES TODAY PLUS CHIPS. THIS IS NORMAL AMOUNT OF FOOD FOR HIM. LAST FOOD INTAKE AROUND 1700. HE WAS SEEN HERE YESTERDAY FOR THIS EXACT SAME COMPLAINT--HE STATES HE HAD NOT SOUGHT CARE FOR THIS PROBLEM UNTIL THEN, EVEN THOUGH IT HAS BEEN GOING ON FOR 2 WEEKS. PT HAD A COMPLETE WORK UP INCLUDING LAB AND CT SCAN OF ABDOMEN AND PELVIS--ALL ESSENTIALLY NORMAL. HE WAS GIVEN RX FOR ZOFRAN WHICH HE HAS NOT PICKED UP FROM THE PHARMACY HE WAS REFERRED TO DR. MASON FOR SURGICAL CONSULT. HE DID NOT ATTEMPT TO CONTACT DR. MASON'S OFFICE OR ANYONE FOR FOLLOW UP. HE DENIES ANY PRIOR ABDOMINAL SURGERIES OR GI PROBLEMS. HE JUST MOVED BACK HERE FROM [place] 3 DAYS AGO. HE WAS LIVING IN [place] WITH HIS MALE S.O. HE IS NOW LIVING HERE WITH HIS PARENTS. Allergies and Home Medications Allergies Coded Allergies: No Known Drug Allergies (Unverified , 02/22/21) Patient Home Medication List Home Medication List Reviewed: Yes Amoxicillin (Amoxicillin) 500 Mg Capsule, 500 MG PO TID Prescribed by: BETH CAMPBELL on 02/22/212020 Ciprofloxacin HCl (Ciprofloxacin HCl) 500 Mg Tablet, 500 MG PO BID Prescribed by: MACHO REDD on 12/29/22 0032 Ondansetron (Ondansetron Odt) 4 Mg Tab.rapdis, 4 MG SL Q4H PRN for NAUSEA/VOMITING Prescribed by: Mai Silva on 12/27/22 1522 Pantoprazole Sodium (Protonix) 40 Mg Tablet.dr, 40 MG PO DAILY Prescribed by: MACHO REDD on 12/29/22 0215 Review of Systems Review of Systems Constitutional: no symptoms reported; No dizziness, No fever EENTM: No Symptoms Reported Respiratory: No Symptoms Reported Cardiovascular: No Symptoms Reported Gastrointestinal: See HPI, Abdominal Pain, Nausea, Vomiting Genitourinary: No Symptoms Reported Musculoskeletal: no symptoms reported Skin: no symptoms reported Psychiatric/Neurological: No Symptoms Reported Endocrine: No Symptoms Reported Hematologic/Lymphatic: No Symptoms Reported Other Comments PT HAS BEEN USING ESTROGEN PATCHES FOR THE LAST YEAR. HE HAS NOT HAD ANY FOR THE LAST MONTH. Past Oaiwrqc-Zlqbin-Lwqelu Hx Patient Social History Tobacco Use?: Yes Tobacco type used: Cigarettes Smoking Status: Current Everyday Smoker Use of E-Cig and/or Vaping dev: No Substance use?: Yes Substance type: Marijuana Substance frequency: Daily Alcohol Use?: Yes Alcohol Frequency: Rarely Immunizations Up To Date Influenza Vaccine Up-to-Date: No; Not Current First/Initial COVID19 Vaccinat: OCTOBER 2020 Second COVID19 Vaccination Chau: OCTOBER 2020 Third COVID19 Vaccination Date: OCTOBER 2020 Past Medical History Surgeries: No Respiratory: No Cardiac: No Neurological: No Genitourinary: No Gastrointestinal: No Musculoskeletal: No 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 CLAIMS NONE X 1 MONTH. Physical Exam Vital Signs Vital Signs - First Documented 12/28/22 22:46 Temp 36.8 Pulse 77 Resp 20 B/P (MAP) 120/79 (93) Pulse Ox 97 Capillary Refill : Height/Weight/BMI Height: '" Weight: lbs. oz. kg; 20.00 BMI Method: General Appearance: WD/WN, no apparent distress, thin, other (VERY DRAMATIC, KEEPS EYES CLOSED AND HEAD TURNED AWAY. 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 ) Progress/Results/Core Measures Results/Orders Lab Results Laboratory Tests Test 12/28/22 22:52 12/29/22 00:01 Range/Units White Blood Count 5.5 4.3-11.0 10^3/uL Red Blood Count 5.00 4.30-5.52 10^6/uL Hemoglobin 14.2 13.3-17.7 g/dL Hematocrit 42 40-54 % Mean Corpuscular Volume 85 80-99 fL Mean Corpuscular Hemoglobin 28 25-34 pg Mean Corpuscular Hemoglobin Concent 34 32-36 g/dL Red Cell Distribution Width 13.1 10.0-14.5 % Platelet Count 182 130-400 10^3/uL Mean Platelet Volume 9.4 9.0-12.2 fL Immature Granulocyte % (Auto) 0 % Neutrophils (%) (Auto) 65 42-75 % Lymphocytes (%) (Auto) 20 12-44 % Monocytes (%) (Auto) 14 H 0-12 % Eosinophils (%) (Auto) 1 0-10 % Basophils (%) (Auto) 0 0-10 % Neutrophils # (Auto) 3.5 1.8-7.8 10^3/uL Lymphocytes # (Auto) 1.1 1.0-4.0 10^3/uL Monocytes # (Auto) 0.7 0.0-1.0 10^3/uL Eosinophils # (Auto) 0.1 0.0-0.3 10^3/uL Basophils # (Auto) 0.0 0.0-0.1 10^3/uL Immature Granulocyte # (Auto) 0.0 0.0-0.1 10^3/uL Sodium Level 138 135-145 MMOL/L Potassium Level 3.3 L 3.6-5.0 MMOL/L Chloride Level 105 98-107 MMOL/L Carbon Dioxide Level 23 21-32 MMOL/L Anion Gap 10 5-14 MMOL/L Blood Urea Nitrogen 4 L 7-18 MG/DL Creatinine 0.82 0.60-1.30 MG/DL Estimat Glomerular Filtration Rate 129 BUN/Creatinine Ratio 5 Glucose Level 115 H 70-105 MG/DL Calcium Level 9.1 8.5-10.1 MG/DL Corrected Calcium 9.1 8.5-10.1 MG/DL Total Bilirubin 0.3 0.1-1.0 MG/DL Aspartate Amino Transf (AST/SGOT) 17 5-34 U/L Alanine Aminotransferase (ALT/SGPT) 19 0-55 U/L Alkaline Phosphatase 47 40-136 U/L C-Reactive Protein High Sensitivity 1.15 H 0.00-0.50 MG/DL Total Protein 6.6 6.4-8.2 GM/DL Albumin 4.0 3.2-4.5 GM/DL Amylase Level 29 25-125 U/L Lipase 4 L 8-78 U/L Acetaminophen Level 14 10-30 UG/ML Serum Alcohol < 10 <10 MG/DL Urine Color YELLOW Urine Clarity CLEAR Urine pH 6.0 5-9 Urine Specific [place] NEG 1.016-1.022 Urine Protein NEGATIVE NEGATIVE Urine Glucose (UA) NEGATIVE NEGATIVE Urine Ketones NEGATIVE NEGATIVE Urine Nitrite NEGATIVE NEGATIVE Urine Bilirubin NEGATIVE NEGATIVE Urine Urobilinogen 0.2 < = 1.0 MG/DL Urine Leukocyte Esterase TRACE H NEGATIVE Urine RBC (Auto) TRACE H NEGATIVE Urine RBC NONE /HPF Urine WBC 0-2 /HPF Urine Squamous Epithelial Cells 2-5 /HPF Urine Crystals PRESENT H /LPF Urine Amorphous Sediment FEW ASHLEY URATES H /LPF Urine Bacteria FEW H /HPF Urine Casts NONE /LPF Urine Mucus NEGATIVE /LPF Urine Culture Indicated YES Urine Opiates Screen NEGATIVE NEGATIVE Urine Oxycodone Screen NEGATIVE NEGATIVE Urine Methadone Screen NEGATIVE NEGATIVE Urine Propoxyphene Screen NEGATIVE NEGATIVE Urine Barbiturates Screen NEGATIVE NEGATIVE Ur Tricyclic Antidepressants Screen NEGATIVE NEGATIVE Urine Phencyclidine Screen NEGATIVE NEGATIVE Urine Amphetamines Screen NEGATIVE NEGATIVE Urine Methamphetamines Screen NEGATIVE NEGATIVE Urine Benzodiazepines Screen NEGATIVE NEGATIVE Urine Cocaine Screen NEGATIVE NEGATIVE Urine Cannabinoids Screen NEGATIVE NEGATIVE My Orders Orders - MACHO REDD DO Ed Iv/Invasive Line Start (12/28/22 23:02) Monitor-Rhythm Ecg Trace Only (12/28/22 23:02) Acetaminophen (12/28/22:) Alcohol (12/28/22:02) Amylase (12/28/22:) Cbc With Automated Diff (12/28/22:) Comprehensive Metabolic Panel (12/28/22:) Hs C Reactive Protein (12/28/22:) Drug Screen Stat (Urine) (12/28/22:) Lipase (12/28/22:) Ua Culture If Indicated (12/28/22:) Ed Iv/Invasive Line Start (12/28/22 23:02) Lactated Ringers (Lr 1000 Ml Iv Solution (12/28/22 23:15) Ondansetron Injection (Zofran Injectio (12/28/22 23:15) Urine Culture (12/29/22 00:01) Ibuprofen Tablet (Ibuprofen Tablet) (12/29/22 00:30) Ceftriaxone Iv/Im (Ceftriaxone Iv/Im) (12/29/22 00:28) Azithromycin Tablet (Azithromycin Tabl (12/29/22 00:30) Neis Ulises Dna Urine Test (12/29/22 00:28) Chlamydia Trachomatis Urine (12/29/22 00:28) Medications Given in ED Current Medications Medications Dose Ordered Sig/Donya Route Start Time Stop Time Status Last Admin Dose Admin Lactated Ringer's 1,000 ml @ 0 mls/hr Q0M ONCE IV 12/28/22 23:15 12/28/22 23:16 DC 12/28/22 23:10 999 MLS/HR Ondansetron HCl 4 mg ONCE ONCE IVP 12/28/22 23:15 12/28/22 23:16 DC 12/28/22 23:10 4 MG Vital Signs/I&O 12/28/22 12/29/22 22:46 00:48 Temp 36.8 Pulse 77 77 Resp 20 B/P (MAP) 120/79 (93) 114/73 Pulse Ox 97 98 Blood Pressure Mean: 93 Progress Progress Note : Progress Note VITALS ON ARRIVAL: TEMP 36.8=98.2, RR 20, BP 120/78, HR 77, O2 SAT 97% ON ROOM AIR LABS INCLUDING CBC, CMP, AMYLASE/LIPASE, ETOH, UA , UDS ORDERED. ALSO ORDERED URINE GC/CHLAMYDIA ORDERED BUT WILL NOT BE RESULTED OUT UNTIL TOMORROW. GIVEN: -IV FLUIDS -ZOFRAN -MOTRIN -ROCEPHIN -ZITHROMAX NO VOMITING AT ANY TIME DURING ER STAY UA WITH SMALL AMOUNT OF BACTERIA--WILL TREAT FOR UTI WELL COVER FOR GC AND CHLAMYDIA, CULTURES PENDING. CBC UNREMARKABLE CMP WITH K 3.3, OTHERWISE UNREMARKABLE CRP 1.15 UDS AND ETOH NEGATIVE. NO INDICATION FOR REPEAT IMAGING PT'S SYMPTOMS HAVE BEEN ONGOING FOR 2 WEEKS AND HAD A COMPLETELY NORMAL CT SCAN OF ABDOMEN/PELVIS YESTERDAY, AND LABS ARE ESSENTIALLY UNCHANGED TODAY. WBC IS UNCHANGED, CMP IS ESSENTIALLY UNCHANGED. VITALS ARE STABLE AND PT IS AFEBRILE. REVIEWED PRIOR RECORDS--ALL ER VISITS. SINCE 2020. DISCUSSED TEST RESULTS, NEED FOR FOLLOW UP WITH DR. MASON ADVISED, GET PRESCR IPTIONS FILLED, ADVISED TO ESTABLISH WITH PCP OF CHOICE FOR ONGOING MEDICAL CARE. Departure Impression Primary Impression: Urinary tract infection Disposition: 01 HOME, SELF-CARE Condition: Stable Departure-Patient Inst. Decision time for Depature: 00:30 Referrals: NO,LOCAL PHYSICIAN (PCP) Primary Care Physician Patient Instructions: Urinary Tract Infection, Adult (DC) Add. Discharge Instructions: GET YOUR PRESCRIPTIONS FILLED AND TAKE PRESCRIBED TYLENOL AND MOTRIN NEEDED FOR PAIN FOLLOW UP WITH IN 2-3 DAYS FOR FURTHER CARE--CALL IN THE MORNING TO SCHEDULE AN APPOINTMENT All discharge instructions reviewed with patient and/or family. Voiced understanding. Scripts Ciprofloxacin HCl (Ciprofloxacin HCl) 500 Mg Tablet 500 MG PO BID, #14 TAB Prov: MACHO REDD DO 12/29/22 MACHO REDD DO Dec 29, 2022 00:32
[2022-12-29 00:33] LABS: AMPHETAMINE SCREEN, URINE NEGATIVE (NEGATIVE); BARBITURATE SCREEN URINE NEGATIVE (NEGATIVE); BENZODIAZEPINES SCREEN URINE NEGATIVE (NEGATIVE); CANNABINOID SCREEN, URINE NEGATIVE (NEGATIVE); COCAINE SCREEN URINE NEGATIVE (NEGATIVE); METHADONE STAT NEGATIVE (NEGATIVE); OPIATE SCREEN URINE NEGATIVE (NEGATIVE); OXYCODONE STAT NEGATIVE (NEGATIVE); PROPOXYPHENE STAT NEGATIVE (NEGATIVE); TRICYCLIC ANTIDEPRESSANTS SCRE NEGATIVE (NEGATIVE)
[2022-12-29 00:48] VITALS: BP 114/73
[2022-12-29] MEDS ORDERED: PANT40TA2 PO (02:15)
== END 2022-12-29 00:48 | disposition home or self-care (01) ==
LOC: EDUNIT# 22:45 → ER 22:46
DX: N39.0 Urinary tract infection, site not specified (principal); F17.210 Nicotine dependence, cigarettes, uncomplicated
CPT/HCPCS: 80053; 80306; 81000; 82150; 83690; 85025; 86141; 87088; 87491; 87591; 99284; G0480 ×2; 36415; 80320; 80329

== ENCOUNTER 2022-12-29 02:09 | Emergency (ER) | payer MEDICAID ==
[~2022-12-29] VITALS: Ht 188 cm; Wt 70.3 kg
[2022-12-29 02:09] VITALS: BP 146/94
[~2022-12-29 02:09] MED LIST changes: +CIPR500T5 PO
[2022-12-29] MEDS ORDERED: PANT40TA2 PO (02:15)
[2022-12-29] MEDS ORDERED: ONDANSETRON 4 MG (ZOFRAN) ORAL DISSOLVE TAB PO ONE (02:15)
--- NOTE | 2022-12-29 02:15 | ED GI ---
General Stated Complaint: VOMITING Source of Information: Patient History of Present Illness Date Seen by Provider: Dec 29, 2022 Time Seen by Provider: 02:08 Initial Comments PT ARRIVES VIA EMS FOR THE SECOND TIME TONIGHT--PT WAS JUST DISMISSED A SHORT TIME AGO PT STATES HE WAS WALKING HOME AND HE VOMITED X 1 SO CALLED EMS AND WANTED TO BE BROUGHT BACK TO THE HOSPITAL PT C/O LLQ PAIN FOR THE LAST 2 DAYS PT WAS SEEN HERE ON 12/27/22 FOR THIS EXACT SAME COMPLAINT. HE HAD A COMPLETE WORK UP INCLUDING LAB AND CT SCAN OF ABDOMEN/PELVIS--ALL WERE COMPLETELY NORMAL. HE HAD REPEAT LAB TESTS TONIGHT--ALL NORMAL. PT HAS CLAIMED THAT HE VOMITED BLOOD ONE TIME 2 WEEKS AGO, AND THEN VOMITED BLOOD AGAIN 1 TIME ON 12/26/22. HE STATES HE DID NOT SEEK CARE 2 WEEKS AGO WHEN HE REPORTEDLY VOMITED BLOOD THE PATIENT HAD NOT HAD ANY VOMITING AT ANY TIME DURING ANY OF HIS PRIOR ER VISITS. PT HAD A NORMAL BM TODAY HE HAS CONTINUED TO EAT AND DRINK NORMALLY, EATING 2 BOLOGNA AND CHEESE SANDWICHES DURING THE DAY--HE STATES IS NORMAL AMOUNT OF FOOD. NO FEVER AT ANY TIME HE IS URINATING A NORMAL AMOUNT. HE IS NOT BLEEDING FROM ANY OTHER SITES OR HAVING EXCESSIVE BRUISING, PETECHIAE OR RASH. PT STATES HE HAD BEEN LIVING IN [place] WITH HIS MALE S.O., AND JUST MOVED BACK HERE 3 DAYS AGO. HE STATES HE IS LIVING WITH HIS PARENTS. Allergies and Home Medications Allergies Coded Allergies: No Known Drug Allergies (Unverified , 02/22/21) Patient Home Medication List Home Medication List Reviewed: Yes Amoxicillin (Amoxicillin) 500 Mg Capsule, 500 MG PO TID Prescribed by: BETH CAMPBELL on 02/22/212020 Ciprofloxacin HCl (Ciprofloxacin HCl) 500 Mg Tablet, 500 MG PO BID Prescribed by: MACHO REDD on 12/29/22 003 Ondansetron (Ondansetron Odt) 4 Mg Tab.rapdis, 4 MG SL Q4H PRN for NAUSEA/VOMITING Prescribed by: Mai Silva on 12/27/22 152 Pantoprazole Sodium (Protonix) 40 Mg Tablet.dr, 40 MG PO DAILY Prescribed by: MACHO REDD on 12/29/22 0215 Review of Systems Review of Systems Constitutional: no symptoms reported Respiratory: No Symptoms Reported Cardiovascular: No Symptoms Reported Gastrointestinal: See HPI Genitourinary: No Symptoms Reported Musculoskeletal: no symptoms reported Skin: no symptoms reported Psychiatric/Neurological: No Symptoms Reported Endocrine: No Symptoms Reported Hematologic/Lymphatic: No Symptoms Reported Past Wxjnqmh-Saazgg-Ppdnlw Hx Patient Social History Tobacco Use?: Yes Tobacco type used: Cigarettes Smoking Status: Current Everyday Smoker Substance use?: Yes Substance type: Marijuana Substance frequency: Daily Alcohol Use?: Yes Alcohol Frequency: Rarely Immunizations Up To Date First/Initial COVID19 Vaccinat: OCTOBER 2020 Second COVID19 Vaccination Chau: OCTOBER 2020 Third COVID19 Vaccination Date: OCTOBER 2020 Past Medical History Surgeries: No Respiratory: No Cardiac: No Neurological: No Genitourinary: No Gastrointestinal: No Musculoskeletal: No 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 CLAIMS NONE X 1 MONTH PT HAS BEEN USING ESTROGEN PATCHES FOR THE LAST YEAR. Physical Exam Vital Signs Vital Signs - First Documented 12/29/22 02:09 Temp 37.3 Pulse 121 Resp 16 B/P (MAP) 146/94 (111) Pulse Ox 96 O2 Delivery Room Air Capillary Refill : Height/Weight/BMI Height: '" Weight: lbs. oz. kg; 20.00 BMI Method: General Appearance: WD/WN, no apparent distress, thin, other (REEKS OF MARIJUANA; VERY DRAMATIC ON ARRIVAL. AT DISMISSAL, NO LONGER WITH DRAMATIC AFFECT AND IMMEDITATELY CHANGES HIS DEMEANOR, AND PT WALKS UPRIGHT AND MOVES QUICKLY WITHOUT ANY DIFFICULTY WHATSOEVER. ) HEENT: PERRL/EOMI, other (ORAL MUCOSA MOIST) Neck: normal inspection Respiratory: normal breath sounds, no respiratory distress, no accessory muscle use, other (MILD GYNECOMASTIA PRESENT) Cardiovascular: regular rate, rhythm, no murmur Gastrointestinal: normal bowel sounds, soft, no pulsatile mass; No distended, No guarding, No rebound; tenderness (LLQ TENDERNESS. ); No hernia, No mass; other Extremities: normal inspection, normal capillary refill Back: no CVA tenderness Neurologic/Psychiatric: passenger service representative II-XII nml as tested, no motor/sensory deficits, alert, oriented x 3, other (KEEPS EYES CLOSED AND HEAD TURNED AWAY. ) Skin: normal color, warm/dry, other (MULTIPLE AREAS ON ABDOMEN WITH OLD ADHESIVE RESIDUE--PT STATES IS FROM HIS ESTROGEN PATCHES, WHICH HE HAS NOT HAD FOR THE LAST MONTH. ) Progress/Results/Core Measures Results/Orders My Orders Orders - MACHO REDD DO Ondansetron Oral Dissolve Tab (Zofran (12/29/22 02:15) Medications Given in ED Current Medications Medications Dose Ordered Sig/Donya Route Start Time Stop Time Status Last Admin Dose Admin Ondansetron HCl 4 mg ONCE ONCE PO 12/29/22 02:15 12/29/22 02:16 DC 12/29/22 02:19 4 MG Vital Signs/I&O 12/29/22 02:09 Temp 37.3 Pulse 121 Resp 16 B/P (MAP) 146/94 (111) Pulse Ox 96 O2 Delivery Room Air Progress Progress Note : Progress Note PT WAS GIVEN ZOFRAN ODT AND RX FOR PROTONIX PT HAS HAD A MEDICAL SCREENING EXAM AND HAS BEEN CLEARED. ADVISED HIM TO MOLD FILLER THE PRESCRIPTIONS THAT HE WAS GIVEN AT HIS PRIOR ER VISIT WELL NEW RX, AND TO FOLLOW UP WITH DR. MASON FOR FURTHER EVALUATION OF THIS PROBLEM. NO VOMITING AT ANY TIME DURING ER STAY. VITALS STABLE. Departure Impression Primary Impression: Abdominal pain Disposition: 01 HOME, SELF-CARE Condition: Stable Departure-Patient Inst. Decision time for Depature: 02:13 Referrals: NO,LOCAL PHYSICIAN (PCP/Family) Primary Care Physician Patient Instructions: Abdominal Pain, Adult ED Add. Discharge Instructions: GET YOUR PRESCRIPTIONS FILLED AND TAKE THEM PRESCRIBED FOLLOW UP WITH DR. MASON,, SURGEON PREVIOUSLY INSTRUCTED. FOLLOW UP WITH TO ESTABLISH REGULAR MEDICAL CARE Scripts Pantoprazole Sodium (Protonix) 40 Mg Tablet. 40 MG PO DAILY, #15 TAB Prov: MACHO REDD DO 12/29/22 MACOH REDD DO Dec 29, 2022 02:15
== END 2022-12-29 02:21 | disposition home or self-care (01) ==
LOC: EDUNIT# 02:09 → ER 02:11
DX: R10.32 Left lower quadrant pain (principal); F17.210 Nicotine dependence, cigarettes, uncomplicated
CPT/HCPCS: 99283

== ENCOUNTER 2022-12-29 09:45 | Emergency (ER) | payer MEDICAID ==
[~2022-12-29 09:45] MED LIST changes: +PANT40TA2 PO
--- NOTE | 2022-12-29 10:08 | ED Abdominal Pain ---
General Chief Complaint: Abdominal/GI Problems Stated Complaint: ABD PAIN | VOMITING Source of Information: Patient Exam Limitations: No Limitations History of Present Illness Date Seen by Provider: Dec 29, 2022 Time Seen by Provider: 09:56 Initial Comments Here with report about anxiety about medical condition and concerned because he has some persistent abdominal pain. Has not started ondansetron or pantoprazole. There is question about urinary tract infection he did not understand that because he had previous sample that was negative. Has had 2 episodes of vomiting blood in the past couple of weeks per report but stable hemoglobin. He has been seen 4 times now in the past 2 days this being the fourth visit. No persistent vomiting currently and not in significant distress other than anxious currently. As reported before, patient is eating and drinking okay. Just moved to this area 2 days ago. Timing/Duration: 2-3 Days Severity/Quality: Moderate, Aching Location: Epigastric Associated Symptoms: No Back Pain, No Chest Pain, No Shortness of Air, No Weakness Allergies and Home Medications Allergies Coded Allergies: No Known Drug Allergies (Unverified , 02/22/21) Patient Home Medication List Home Medication List Reviewed: Yes Amoxicillin (Amoxicillin) 500 Mg Capsule, 500 MG PO TID Prescribed by: BETH CAMPBELL on 02/22/212020 Ciprofloxacin HCl (Ciprofloxacin HCl) 500 Mg Tablet, 500 MG PO BID Prescribed by: MACHO REDD on 12/29/22 003 Ondansetron (Ondansetron Odt) 4 Mg Tab.rapdis, 4 MG SL Q4H PRN for NAUSEA/VOMITING Prescribed by: Mai Silva on 12/27/22 1522 Pantoprazole Sodium (Protonix) 40 Mg Tablet.dr, 40 MG PO DAILY Prescribed by: MACHO REDD on 12/29/22 0215 Review of Systems Review of Systems Constitutional: see HPI; No chills, No fever EENTM: No Symptoms Reported Respiratory: No Symptoms Reported Cardiovascular: No Symptoms Reported Gastrointestinal: Abdominal Pain, Nausea, Vomiting Psychiatric/Neurological: Anxiety Past Xzesser-Kdqvfz-Rjxfav Hx Patient Social History Tobacco Use?: Yes Tobacco type used: Cigarettes Substance use?: Yes Substance type: Marijuana Alcohol Use?: No Pt feels they are or have been: No Immunizations Up To Date First/Initial COVID19 Vaccinat: OCTOBER 2020 Second COVID19 Vaccination Chau: OCTOBER 2020 Third COVID19 Vaccination Date: OCTOBER 2020 Past Medical History Surgery/Hospitalization HX: DEPRESSION, SUICIDIAL IDEATION, TRANSGENDER Surgeries: No Respiratory: No Cardiac: No Neurological: No Genitourinary: No Gastrointestinal: No Musculoskeletal: No 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 CLAIMS NONE X 1 MONTH PT HAS BEEN USING ESTROGEN PATCHES FOR THE LAST YEAR. Physical Exam Vital Signs Vital Signs - First Documented 12/29/22 09:53 Temp 37.5 Pulse 130 Resp 20 B/P (MAP) 158/105 (122) Pulse Ox 99 O2 Delivery Room Air Capillary Refill : Height/Weight/BMI Height: '" Weight: lbs. oz. kg; 19.00 BMI Method: General Appearance: WD/WN, no apparent distress Respiratory: lungs clear, normal breath sounds Cardiovascular: regular rate, rhythm, no murmur Gastrointestinal: non tender, soft Neurologic/Psychiatric: alert, oriented x 3 Skin: normal color, warm/dry Progress/Results/Core Measures Results/Orders My Orders Orders - LYNDA GAMEZ MD Pantoprazole Tablet (Protonix Tablet) (12/29/22 10:15) Vital Signs/I&O 12/29/22 09:53 Temp 37.5 Pulse 130 Resp 20 B/P (MAP) 158/105 (122) Pulse Ox 99 O2 Delivery Room Air Progress Progress Note : Progress Note Seen and evaluated. We reviewed all previous labs including UA studies. Culture is back in I would suspect that this is contamination so we will hold on antibiotics. We did review outpatient versus emergency department evaluation and discussed the importance of follow-up, especially with Dr. Hudson. We discussed the need for possible upper endoscopy. Protonix 40 mg p.o. ordered now. After conversation and discussion of all labs and findings over the past 2 days, patient felt much better. Discharged home with return precautions. Patient verbalized understanding of instructions and agreement with plan. Departure Impression Primary Impression: Abdominal pain Qualified Codes: R10.13 - Epigastric pain Disposition: HOME, SELF-CARE Condition: Improved Departure-Patient Inst. Decision time for Depature: 10:16 Referrals: CHRISTINA FELICIANO MD, TAKAAKI MD NO,LOCAL PHYSICIAN (PCP) Primary Care Physician Patient Instructions: Abdominal Pain, Adult ED Add. Discharge Instructions: All discharge instructions reviewed with patient and/or family. Voiced und erstanding. Is important that you start and continue pantoprazole as prescribed. Pick that prescription up. You may also hot die picker the ondansetron (Zofran) for nausea as needed. You do not need to start the ciprofloxacin for possible UTI as your culture shows contamination. Continue clear a light diet over the next 24 to 48 hours and then advance as tolerated. You may initiate [id number] Pepcid or the generic famotidine 20 mg daily as needed for stomach upset as well. It is very important that you follow-up with Dr. Hudson for recheck and further evaluation and for possible upper endoscopy (scope). You may also follow-up w ith the [facility] to discuss medical care and mental health care needs. Return for worse pain, fever, vomiting, weakness, breathing problems or other concerns as needed. LYNDA GAMEZ MD Dec 29, 2022 10:08
[2022-12-29] MEDS ORDERED: PANTOPRAZOLE 40 MG (PROTONIX) TAB PO ONE (10:15)
[2022-12-29 10:29] VITALS: BP 158/105
== END 2022-12-29 10:30 | disposition home or self-care (01) ==
LOC: EDUNIT# 09:45 → ER 09:46
DX: R10.13 Epigastric pain (principal); F17.210 Nicotine dependence, cigarettes, uncomplicated
CPT/HCPCS: 99283

== ENCOUNTER 2023-02-02 09:23 | Emergency (ER) | payer MEDICAID ==
[~2023-02-02] VITALS: Ht 187.9 cm; Wt 70.3 kg
--- NOTE | 2023-02-02 10:42 | ED Psychosocial ---
General Chief Complaint: Psych/Social Disorder Stated Complaint: LACERATIONS Nursing Triage Note: PT BROUGHT IN BY [facility] FROM A PARK IN [place]. PT HAD CUT HIMSELF 10X ON BOTH ARMS WITH INTENT TO HARM HIMSELF. PT HAS HX OF SUICIDAL THOUGHTS AND INTENT. HAS BEEN INPATIENT IN MULTIPLE PLACES. HX OF CUTTING AND OVERDOSE. Source: patient Exam Limitations: no limitations (PARISH BANSAL) History of Present Illness Date Seen by Provider: Feb 02, 2023 Time Seen by Provider: 10:27 Initial Comments 23yo transgender M with h/o anxiety, depression, self harm, suicide attempts, and psychiatric hospitalizations presents to the ED via EMS for self harm and SI. History limited due to pt cooperation, states that he "doesn't really want to go into it". This morning around 6am, pt inflicted multiple lacerations to B/L anterior forearms with a razor with the intent of self harm and suicide. Pt then called EMS for help after incident. Pt states that he has h/o self harm using a razor in past and has been hospitalized for it, last time in August of this year in [place]. Pt states that he has also attempted suicide via the same method and OD. Pt denies having taken any medications prior to arrival. Pt is currently experiencing SI but states that he does not have a plan or accesss to firearms in the home. Pt would not elaborate regarding specifics of what incited most recent episode of self harm and SI but states that he has been depressed for "at least a couple of months". Pt lives at home with parents. Pt is not under any psychiatric care at this time and has not been on psychiatric meds for the last two years. Pt states that he ran out of medications 2yrs but states that he has never felt like they have helped. Denies HI, any changes to daily life/new stressors, nausea, vomiting, abd pain, CP, fevers, and chills. Last tetanus shot ~2 yrs ago. Timing/Duration: this morning Associated Symptoms: injury, suicidal ideation (PARISH BANSAL) Allergies and Home Medications Allergies Coded Allergies: No Known Drug Allergies (Unverified , 02/22/21) Patient Home Medication List Home Medication List Reviewed: Yes (PARISH BANSAL) Home Medication List Reviewed: Yes (LEO HAYNES MD) Amoxicillin (Amoxicillin) 500 Mg Capsule, 500 MG PO TID Prescribed by: BETH CAMPBELL on 02/22/212020 Ciprofloxacin HCl (Ciprofloxacin HCl) 500 Mg Tablet, 500 MG PO BID Prescribed by: MACHO REDD on 12/29/22 003 Ondansetron (Ondansetron Odt) 4 Mg Tab.rapdis, 4 MG SL Q4H PRN for NAUSEA/VOMITING Prescribed by: Mai Silva on 12/27/22 152 Pantoprazole Sodium (Protonix) 40 Mg Tablet.dr, 40 MG PO DAILY Prescribed by: MACHO REDD on 12/29/22 0215 Review of Systems Constitutional: no symptoms reported EENTM: no symptoms reported Respiratory: no symptoms reported Cardiovascular: no symptoms reported Gastrointestinal: no symptoms reported Genitourinary: no symptoms reported Musculoskeletal: no symptoms reported Skin: other (mulitple lacerations of varying depth on B/L forearms) Psychiatric/Neurological: Anxiety, Depressed (PARISH BANSAL) All Other Systems Reviewed Negative Unless Noted: Yes (PARISH BANSAL) Past Msdseoe-Dtpxzw-Mzlifn Hx Patient Social History Tobacco Use?: Yes Tobacco type used: Cigarettes Smoking Status: Current Everyday Smoker Use of E-Cig and/or Vaping dev: No Substance use?: Yes Substance type: Marijuana (uses a couple times every couple of weeks) Alcohol Use?: Yes Alcohol Frequency: Once in a while Pt feels they are or have been: No (PAR[facility] BANSAL) Immunizations Up To Date First/Initial COVID19 Vaccinat: OCTOBER 2020 Second COVID19 Vaccination Chau: OCTOBER 2020 Third COVID19 Vaccination Date: OCTOBER 2020 (PARISH BANSAL) Past Medical History Surgery/Hospitalization HX: DEPRESSION, SUICIDIAL IDEATION, TRANSGENDER Surgeries: No Respiratory: No Cardiac: No Neurological: No Genitourinary: No Gastrointestinal: No Musculoskeletal: No Endocrine: Yes (Transgender identity with hormone therapy) HEENT: No Cancer: No Psychosocial: Yes (SUICIDAL THOUGHTS; PSYCH ADMIT X 1 04/2020) Anxiety, Depression Integumentary: No Blood Disorders: No (PARISH BANSAL) Family Medical History No Pertinent Family Hx SOCIAL HISTORY: -SMOKES 1 PPD -ETOH--RARELY DRINKS -DRUGS--SMOKES MARIJUANA ON A DAILY/ALMOST DAILY BASIS. CLAIMS NONE X 1 MONTH PT HAS BEEN USING ESTROGEN PATCHES FOR THE LAST YEAR. (PAR[facility] BANSAL) Physical Exam Vital Signs - First Documented 02/02/23 09:23 Temp 36.5 Pulse 114 Resp 20 B/P (MAP) 152/81 (104) Pulse Ox 98 O2 Delivery Room Air (LEO HAYNES MD) Capillary Refill : Less Than 3 Seconds (PAR[facility] BANSAL) Height, Weight, BMI Height: '" Weight: lbs. oz. kg; 19.00 BMI Method: General Appearance: WD/WN, no apparent distress HEENT: PERRL/EOMI, TMs normal, pharynx normal Respiratory: lungs clear, normal breath sounds, no respiratory distress, no accessory muscle use Cardiovascular: regular rate, rhythm, no murmur Gastrointestinal: normal bowel sounds, non tender, soft Extremities: no pedal edema, no calf tenderness Neurologic/Psychiatric: alert, oriented x 3 Appearance/Memory: other (mild memory impairement, flat affect) Behavior/Eye Contact: cooperative, avoids eye contact Thoughts/Hallucinations: normal thought pattern, no apparent hallucination Skin: normal color, warm/dry, other (multiple lacerations of varying depth on B/L anterior forearms. Superificial lacerations to L forearm, deeper lacerations to R forearm. 2-3 lacerations of R forearm with depths of <1cm, some oozing of deeper lacerations on R forearm) Lymphatic: no adenopathy (PAR[facility] BANSAL) Progress/Results/Core Measures Results/Orders Lab Results Laboratory Tests Test 02/02/23 10:33 02/02/23 10:35 02/02/23 11:58 Range/Units White Blood Count 13.4 H 4.3-11.0 10^3/uL Red Blood Count 5.19 4.30-5.52 10^6/uL Hemoglobin 14.7 13.3-17.7 g/dL Hematocrit 44 40-54 % Mean Corpuscular Volume 85 80-99 fL Mean Corpuscular Hemoglobin 28 25-34 pg Mean Corpuscular Hemoglobin Concent 33 32-36 g/dL Red Cell Distribution Width 12.9 10.0-14.5 % Platelet Count 190 130-400 10^3/uL Mean Platelet Volume 9.6 9.0-12.2 fL Immature Granulocyte % (Auto) 0 % Neutrophils (%) (Auto) 73 42-75 % Lymphocytes (%) (Auto) 18 12-44 % Monocytes (%) (Auto) 7 0-12 % Eosinophils (%) (Auto) 2 0-10 % Basophils (%) (Auto) 0 0-10 % Neutrophils # (Auto) 9.8 H 1.8-7.8 10^3/uL Lymphocytes # (Auto) 2.4 1.0-4.0 10^3/uL Monocytes # (Auto) 0.9 0.0-1.0 10^3/uL Eosinophils # (Auto) 0.3 0.0-0.3 10^3/uL Basophils # (Auto) 0.0 0.0-0.1 10^3/uL Immature Granulocyte # (Auto) 0.1 0.0-0.1 10^3/uL Sodium Level 138 135-145 MMOL/L Potassium Level 3.4 L 3.6-5.0 MMOL/L Chloride Level 106 98-107 MMOL/L Carbon Dioxide Level 20 L 21-32 MMOL/L Anion Gap 12 5-14 MMOL/L Blood Urea Nitrogen 9 7-18 MG/DL Creatinine 0.68 0.60-1.30 MG/DL Estimat Glomerular Filtration Rate 136 BUN/Creatinine Ratio 13 Glucose Level 97 70-105 MG/DL Calcium Level 9.4 8.5-10.1 MG/DL Corrected Calcium 9.2 8.5-10.1 MG/DL Total Bilirubin 0.4 0.1-1.0 MG/DL Aspartate Amino Transf (AST/SGOT) 17 5-34 U/L Alanine Aminotransferase (ALT/SGPT) 19 0-55 U/L Alkaline Phosphatase 50 40-136 U/L Total Protein 6.7 6.4-8.2 GM/DL Albumin 4.2 3.2-4.5 GM/DL Salicylates Level < 5.0 L 5.0-20.0 MG/DL Acetaminophen Level < 10 L 10-30 UG/ML Serum Alcohol < 10 <10 MG/DL SARS-CoV-2 RNA (RT-PCR) Not Detected Not Detecte Urine Color YELLOW Urine Clarity CLEAR Urine pH 6.0 5-9 Urine Specific [place] 1.025 H 1.016-1.022 Urine Protein TRACE H NEGATIVE Urine Glucose (UA) NEGATIVE NEGATIVE Urine Ketones NEGATIVE NEGATIVE Urine Nitrite NEGATIVE NEGATIVE Urine Bilirubin NEGATIVE NEGATIVE Urine Urobilinogen 1.0 < = 1.0 MG/DL Urine Leukocyte Esterase NEGATIVE NEGATIVE Urine RBC (Auto) NEGATIVE NEGATIVE Urine RBC NONE /HPF Urine WBC RARE /HPF Urine Squamous Epithelial Cells 2-5 /HPF Urine Crystals NONE /LPF Urine Bacteria TRACE /HPF Urine Casts NONE /LPF Urine Mucus SMALL H /LPF Urine Culture Indicated NO Urine Opiates Screen NEGATIVE NEGATIVE Urine Oxycodone Screen NEGATIVE NEGATIVE Urine Methadone Screen NEGATIVE NEGATIVE Urine Propoxyphene Screen NEGATIVE NEGATIVE Urine Barbiturates Screen NEGATIVE NEGATIVE Ur Tricyclic Antidepressants Screen NEGATIVE NEGATIVE Urine Phencyclidine Screen NEGATIVE NEGATIVE Urine Amphetamines Screen NEGATIVE NEGATIVE Urine Methamphetamines Screen NEGATIVE NEGATIVE Urine Benzodiazepines Screen NEGATIVE NEGATIVE Urine Cocaine Screen NEGATIVE NEGATIVE Urine Cannabinoids Screen NEGATIVE NEGATIVE (LOE HAYNES MD) My Orders Orders - LEO HAYNES MD Ekg Tracing (02/02/23 09:47) Ua Culture If Indicated (02/02/23 10:31) Cbc With Automated Diff (02/02/23 10:31) Comprehensive Metabolic Panel (02/02/23 10:31) Alcohol (02/02/23 10:31) Drug Screen Stat (Urine) (02/02/23 10:31) Acetaminophen (02/02/23 10:31) Salicylate (02/02/23 10:31) Ed Iv/Invasive Line Start (02/02/23 10:31) Monitor-Rhythm Ecg Trace Only (02/02/23 10:31) Bh Status Checks/Observation O Q15M (02/02/23 10:31) Ed Iv/Invasive Line Start (02/02/23 10:31) Vital Signs (02/02/23 10:31) Activity (02/02/23 10:31) Reassess Patient Agitation (02/02/23 10:31) Covid 19 Inhouse Test (02/02/23 11:11) General/Regular (02/02/23 Lunch) (LEO HAYENS MD) Vital Signs/I&O 02/02/23 09:23 Temp 36.5 Pulse 114 Resp 20 B/P (MAP) 152/81 (104) Pulse Ox 98 O2 Delivery Room Air (LEO HAYNES MD) Blood Pressure Mean: 104 Progress Progress Note #1: Time: 11:47 Progress Note Patient seen and evaluated by me. I have reviewed the medical student's documentation and agree. However, on my exam (from time of medical student's) the patient is much more alert and aware. He is articulate and asking to be discharged. His pupils have dilated more (medical student reported "pinpoint pupils" and "somnolence" with difficulty in recall of recent events. Patient is now saying he was "stressed" and should have called his girlfriend and did not. Cut himself due to "not wanting to feel the stress" and currently denies SI. Physical exam also remarkable for multiple "hesitation" shaver to bilateral forearms from wrist to AC space. No active bleeding. More to left forearm than right. evidence of old healing scars from prior cuts. REst of exam benign. (patient has "lazy eye" on the left). Psychiatric inpatient screening labs obtained (CBC, CMP, UA, UDS, Alcohol, Acetaminophen level and salicylate level) with EKG and COVD test. DDx based on H&P : drug intoxication, SI, manipulative behavior Labs and EKG independently reviewed and interpreted by me. CBC shows mildly elevated WBC at 13.4 otherwise WNL. Chem 12 unremarkable, Covid neg. asa, tylenol and etoh neg. Patient has not provided a urine sample as of yet. He (at this time) is requesting to go home, giving excuses for his behavior (his borderline personality disorder) and lack of contact with his girlfriend. He tried to tell me that his parents would be home this weekend and he wouldn't be alone. That he would not hurt himself. I advised him that I would prefer to have the Mental Health screen him and create a safety plan. I feel very uncomfortable with his complete change in demeanor and recent self injurous behavior. I feel like with his age and history he is at high risk of further self harm and possibly suicide. Awaiting UA so that mental health can screen him. Progress Note #2: Time: 14:08 Progress Note Patient "screened" by [facility] for "self harm". Form indicates that the patient has resources and a plan to help (her)self when feeling like self-harming. Apparently reported to the screener that (s)he identifies as female - did not indicate such to either myself or medical student. Patient apparently did not endorse any ideas of SI to the screener. The form does not reflect the fact the patient indicated that (s)he has a scheduled telehealth appointment with a psychiatrist on Sunday of next week. There is also no plan for follow up from [facility]. I will provide the contact information for [facility] and will encourage Hilario to reach out if feelings of self harm are overwhelming or if (s)he becomes suicidal again. Drug screen was negative. I am not certain what was causing the somnolence and lack of participation in the exam on presentation. (S)he continues to deny SI and would like to discharge to home. Return precautions provided. (LEO HAYNES MD) Initial ECG Impression Date: Feb 02, 2023 Initial ECG Impression Time: 10:09 Initial ECG Rate: 83 Initial ECG Rhythm: Normal Sinus Initial ECG Intervals: Normal Initial ECG Impression: Normal (LEO HAYNES MD) Departure Impression Primary Impression: Intentional self-harm by sharp object Qualified Codes: X78.9XXA - Intentional self-harm by unspecified sharp object, initial encounter Additional Impressions: History of borderline personality disorder Suicidal ideation Disposition: 01 HOME, SELF-CARE Condition: Stable Departure-Patient Inst. Decision time for Depature: 14:14 (LEO HAYNES MD) Referrals: NO,LOCAL PHYSICIAN (PCP/Family) Primary Care Physician Patient Instructions: Self-Harm (DC) Add. Discharge Instructions: Please keep your follow up appointment with Mental Health on SundayFebruary 06. If, in the meantime, you have any thought of suicide or other self harm, please return to the Emergency Department for re-evaluation. You can also call the Suicide Prevention Hotline. Get Immediate Help MentalHealth.gov or Call 378-654-(JDZO) 3131 291 Suicide & Crisis Lifeline Call or Text https://986zipcodemailer.comline.org/ Verification and Attestation of Medical Student E/M Service A medical student performed and documented this service in my presence. I reviewed and verified all information documented by the medical student and made modifications to such information, when appropriate. I personally performed the physical exam and medical decision making. Leo Haynes, Feb 02, 2023,14:17 (LEO HAYNES MD) PAR[place] BANSAL 15, 2023 10:42 LEO HAYNES MD Feb 02, 2023 11:51
[2023-02-02 10:43] LABS: BASOPHILS % (AUTO) 0 % (0-10); EOSINOPHILS # (AUTO) 0.3 10^3/uL (0.0-0.3); EOSINOPHILS % (AUTO) 2 % (0-10); HEMATOCRIT 44 % (40-54); HEMOGLOBIN 14.7 g/dL (13.3-17.7); LYMPHOCYTES # (AUTO) 2.4 10^3/uL (1.0-4.0); LYMPHOCYTES % (AUTO) 18 % (12-44); MEAN CORPUSCULAR HEMOGLOBIN 28 pg (25-34); MEAN CORPUSCULAR HGB CONC 33 g/dL (32-36); MEAN CORPUSCULAR VOLUME 85 fL (80-99); MEAN PLATELET VOLUME 9.6 fL (9.0-12.2); MONOCYTES # (AUTO) 0.9 10^3/uL (0.0-1.0); MONOCYTES % (AUTO) 7 % (0-12); NEUTROPHILS # (AUTO) 9.8 10^3/uL (1.8-7.8); NEUTROPHILS % (AUTO) 73 % (42-75); PLATELET COUNT 190 10^3/uL (130-400); WHITE BLOOD COUNT 13.4 10^3/uL (4.3-11.0)
[2023-02-02 10:55] LABS: ALBUMIN 4.2 GM/DL (3.2-4.5); CHLORIDE 106 MMOL/L (98-107); POTASSIUM 3.4 MMOL/L (3.6-5.0); SODIUM 138 MMOL/L (135-145)
[2023-02-02 10:56] LABS: CALCIUM 9.4 MG/DL (8.5-10.1)
[2023-02-02 10:58] LABS: GLUCOSE 97 MG/DL (70-105); TOTAL PROTEIN 6.7 GM/DL (6.4-8.2)
[2023-02-02 10:59] LABS: BILIRUBIN,TOTAL 0.4 MG/DL (0.1-1.0); CARBON DIOXIDE 20 MMOL/L (21-32)
[2023-02-02 11:01] LABS: ALKALINE PHOSPHATASE 50 U/L (40-136); CREATININE SERUM 0.68 MG/DL (0.60-1.30); GFR ESTIMATED 136
[2023-02-02 11:03] LABS: BUN/CREATININE RATIO 13
[2023-02-02 11:04] LABS: SALICYLATE < 5.0 MG/DL (5.0-20.0)
[2023-02-02 11:05] LABS: ALANINE AMINOTRANSFERASE 19 U/L (0-55)
[2023-02-02 11:06] LABS: ACETAMINOPHEN < 10 UG/ML (10-30)
[2023-02-02 12:20] LABS: BILIRUBIN,URINE NEGATIVE (NEGATIVE); CLARITY,URINE CLEAR; COLOR,URINE YELLOW; GLUCOSE, URINE (UA) NEGATIVE (NEGATIVE); KETONES,URINE NEGATIVE (NEGATIVE); LEUKOCYTE ESTERASE ,URINE NEGATIVE (NEGATIVE); NITRITE,URINE NEGATIVE (NEGATIVE); PROTEIN,URINE TRACE (NEGATIVE)
[2023-02-02 12:21] LABS: BACTERIA,URINE TRACE /HPF; WBC,URINE RARE /HPF
[2023-02-02 12:26] LABS: AMPHETAMINE SCREEN, URINE NEGATIVE (NEGATIVE); BARBITURATE SCREEN URINE NEGATIVE (NEGATIVE); BENZODIAZEPINES SCREEN URINE NEGATIVE (NEGATIVE); CANNABINOID SCREEN, URINE NEGATIVE (NEGATIVE); COCAINE SCREEN URINE NEGATIVE (NEGATIVE); METHADONE STAT NEGATIVE (NEGATIVE); OPIATE SCREEN URINE NEGATIVE (NEGATIVE); OXYCODONE STAT NEGATIVE (NEGATIVE); PROPOXYPHENE STAT NEGATIVE (NEGATIVE); TRICYCLIC ANTIDEPRESSANTS SCRE NEGATIVE (NEGATIVE)
[2023-02-02 14:41] VITALS: BP 139/78
== END 2023-02-02 14:45 | disposition home or self-care (01) ==
LOC: EDUNIT# 09:30 → ER 09:32
DX: S51.811A Laceration without foreign body of right forearm, initial encounter (principal); S51.812A Laceration without foreign body of left forearm, initial encounter; F17.210 Nicotine dependence, cigarettes, uncomplicated; Z86.59 Personal history of other mental and behavioral disorders; X78.8XXA Intentional self-harm by other sharp object, initial encounter
CPT/HCPCS: 80053; 80306; 81000; 85025; 87636; 93005; 99284; G0480 ×3; 36415; 80320; 80329